=== PATIENT | female | born 2000 | race American Indian/Alaskan Native ===

== ENCOUNTER 2019-06-15 17:39 | Outpatient (CLI) | payer MEDICAID ==
[2019-06-15 17:56] VITALS: BP 125/80
[2019-06-15] MEDS ORDERED: LACTATED RINGERS 500 ML IV ONE (19:00)
[2019-06-15 19:19] LABS: Bilirubin,Urine NEG (Negative); Blood,Urine NEG (Negative); Color,Urine Yellow (Yellow); Mucus,Urine FEW /HPF; Protein,Urine <15 mg/dL mg/dL (Negative)
== END 2019-06-15 20:21 | disposition home or self-care (01) ==
LOC: TRG 17:39
PROVIDERS: ATTEND Obstetrics & Gynecology
DX: O26.892 Other specified pregnancy related conditions, second trimester (principal); Z3A.28 28 weeks gestation of pregnancy
CPT/HCPCS: 81001

== ENCOUNTER 2019-08-14 13:38 | Outpatient (CLI) | payer MEDICAID ==
[2019-08-14 15:45] LABS: Bilirubin,Urine NEG (Negative); Blood,Urine NEG (Negative); Color,Urine Yellow (Yellow); Mucus,Urine FEW /HPF; Protein,Urine <15 mg/dL mg/dL (Negative)
[2019-08-14] MEDS ORDERED: LACTATED RINGERS 1,000 ML IV SCH (16:00)
[2019-08-14 16:01] LABS: Hematocrit 32.2 % (30.3-42.9); Hemoglobin 10.7 gm/dl (10.1-14.3); Mean Corpuscular HGB Conc 33 % (30-34); Mean Corpuscular Volume 90 fl (79-97); Platelet Count 168 K/mm3 (140-440); Red Blood Count 3.57 M/mm3 (3.65-5.03)
[2019-08-14 16:18] LABS: Alanine Aminotransferase 11 units/L (7-56); Uric Acid 3.8 mg/dL (3.5-7.6)
[2019-08-14 17:31] VITALS: BP 179/65
== END 2019-08-14 18:00 | disposition home or self-care (01) ==
LOC: TRG 13:38
PROVIDERS: ATTEND Obstetrics & Gynecology
DX: O47.1 False labor at or after 37 completed weeks of gestation (principal); Z3A.37 37 weeks gestation of pregnancy
CPT/HCPCS: 36415; 59025; 81001; 82565; 83615; 84450; 84460; 84550; 85027

== ENCOUNTER 2019-08-18 01:21 | Outpatient (CLI) | payer MEDICAID ==
[2019-08-18 04:26] LABS: Hematocrit 33.2 % (30.3-42.9); Hemoglobin 10.9 gm/dl (10.1-14.3); Mean Corpuscular HGB Conc 33 % (30-34); Mean Corpuscular Volume 90 fl (79-97); Platelet Count 162 K/mm3 (140-440); Red Blood Count 3.68 M/mm3 (3.65-5.03); Red Cell Distribution Width 14.5 % (13.2-15.2)
[2019-08-18 04:29] LABS: Bilirubin,Urine NEG (Negative); Blood,Urine NEG (Negative); Color,Urine Yellow (Yellow); Mucus,Urine 2+ /HPF
[2019-08-18 04:52] VITALS: BP 109/70
[2019-08-18 06:55] LABS: Alanine Aminotransferase 10 units/L (7-56)
[2019-08-18 08:01] LABS: Bilirubin,Urine NEG (Negative); Blood,Urine MOD (Negative); Color,Urine Yellow (Yellow); Protein,Urine <15 mg/dL mg/dL (Negative)
== END 2019-08-18 08:38 | disposition home or self-care (01) ==
LOC: TRG 01:21
PROVIDERS: ATTEND Obstetrics & Gynecology
DX: O47.1 False labor at or after 37 completed weeks of gestation (principal); Z3A.37 37 weeks gestation of pregnancy
CPT/HCPCS: 36415; 59025; 81001; 82565; 83615; 84450; 84460; 84550; 85027; 87086